=== PATIENT | male | born 1950 | race Caucasian/White ===

== ENCOUNTER → 2023-11-07 12:58 | Outpatient (REF) | payer MEDICARE, SELFPAY | LOC: RAD 12:58 | PROVIDERS: ATTENDING PHYSICIAN Urology | DX: N20.0 Calculus of kidney (principal) | CPT/HCPCS: 74018 ==

== ENCOUNTER → 2024-11-19 13:28 | Outpatient (REF) | payer MEDICARE, SELFPAY | LOC: RAD 13:28 | PROVIDERS: ATTENDING PHYSICIAN Urology; FAMILY PHYSICIAN Family Medicine | DX: N20.0 Calculus of kidney (principal) | CPT/HCPCS: 74018 ==